=== PATIENT | female | born 1990 | race Caucasian/White ===

== ENCOUNTER → 2018-01-02 | Outpatient (CLI) | payer MEDICAID ==
[~2018-01-02] MED LIST: OMNIPAQUE 350 MG/ML, 100ML BOTTLE ONE
== END | disposition home or self-care (01) ==
LOC: CFH 13:59
PROVIDERS: ATTEND Internal Medicine Hematology & Oncology
DX: D72.820 Lymphocytosis (symptomatic) (principal)
CPT/HCPCS: 71260; 74177; Q9967

== ENCOUNTER 2019-05-27 11:48 | Emergency (ER) | payer BC, MEDICAID ==
[~2019-05-27] VITALS: Ht 165.1 cm; Wt 87.0 kg
[2019-05-27 14:19] VITALS: BP 102/50
== END 2019-05-27 14:21 | disposition home or self-care (01) ==
LOC: ED 12:28
DX: R11.2 Nausea with vomiting, unspecified (principal); R19.7 Diarrhea, unspecified; R10.84 Generalized abdominal pain
CPT/HCPCS: 36415; 80053; 81001; 83690; 84703; 85025; 87086; 96372; 96374; 96375; 99283; J0500; J2405; J3490; J7030